=== PATIENT | male | born 1990 | race African-American/Black ===

== ENCOUNTER 2016-03-31 20:48 | Observation (INO) | payer MEDICARE, MEDICAID ==
[2016-03-31 20:49] VITALS: BMI 34.2
[2016-03-31] MEDS ORDERED: SODIUM CHLORIDE 0.9% 10 ML FLUSH FLUSH PRN (20:55)
--- NOTE | 2016-03-31 21:25 | EDPRACDOC ---
- General Information Stated Complaint: OVERDOSE Time Seen by Provider: 03/31/16 20:54 Information Source: [employer] Mode Of Arrival: Ambulance Home Medications: Home Medications Liraglutide [Victoza 0.6 mg/0.1 ml] 1.8 mg SQ BID 03/02/13 Alprazolam [Xanax] 1 mg PO TID 08/19/14 Zolpidem Tartrate [Ambien] 10 mg PO HS PRN 08/19/14 Pregabalin [Lyrica] 100 mg PO Q8H 03/31/15 Esomeprazole Mag Trihydrate [Nexium] 40 mg PO DAILY 06/01/15 Oxycodone HCl [Oxycodone Immediate Release] 20 mg PO .3-4X DAILY PRN 06/01/15 Allergies/Adverse Reactions: Allergies Allergy/AdvReac Type Severity Reaction Status Date / Time acetaminophen [From Vicodin] Allergy Severe Angioedema* Verified 11/23/15 11:33 hydrocodone bitartrate Allergy Severe Angioedema* Verified 11/23/15 11:33 [From Vicodin] prednisone Allergy Mild Confusion Verified 11/23/15 11:33 - History of Present Illness Onset: 30 MINUTES [employer] HPI: PT STATES TOOK NAPROXEN 220MG #50 LYRICA 100MG #4 XANAX UNKNOWN DOSE #3 PT STATES TOOK THIS IN ATTEMPTS TO HURT HIMSELF B/C HE IS TIRED OF LIFE. PT C/O CHEST TIGHTNESS. BP IS ELEVATED ON ARRIVAL. PT DOES NOT ADMIT TO OR DENY SUICIDAL IDEATIONS. Ingestion: Reports: Intentional Drug Ingested: NAPROXEN, XANANX, AND LYRICA Drug Amount Ingested: NAPROXEN 220MG #50, XANAX #3, LYRICA Suicidal Intent: Reports: Suicidal Intent, Suicidal Plan Stressors: Reports: Relationships Relevant History: Reports: Anxiety, Schizophrenia Medication Compliance?: No Reason for Seeking Treatment: 911 Call Symptom Severity: Mild Vomited After Ingestion?: No Associated Signs and Symptoms: Reports: Anxiety, Depression ED Past Medical History - History Reviewed Yes Nurses notes reviewed and agree except as marked Travel Outside of [place] in the Last 3 Months?: No - Patient Medical History Cardiac History: Reports: Hypertension, Hypercholesterolemia Systemic History: Reports: Diabetes Additional Past Medical History: CHRONIC PAIN ON OXYCODONE. Surgical History: Reports: Tonsillectomy/Adnoidectomy - Social Medical History Smoking Status: Heavy tobacco smoker (5 or more cigarettes/day or daily pipe/ cigar) Social History: Reports: Cocaine Use ETOH: None Substance Abuse: None Lives With: Other Lives In: Home EDM Review of Systems - Review of Systems ROS Negative Except as Marked: Yes All systems reviewed and were negative except as marked Constitutional: No Symptoms Reported. negative: Fever, Chills, Weakness, Fatigue, Loss of Appetite Eyes: No Symptoms Reported. negative: Redness, Blurred Vision, Double Vision, Discharge, Pain, Light Sensitive, Photophobia Ears: No Symptoms Reported. negative: Pain, Hearing Loss, Drainage, Ear Pulling Throat: No Symptoms Reported. negative: Pain, Swelling Nose: No Symptoms Reported. negative: Congestion, Bleeding, Discharge, Injection, Swelling, Deformity, Ecchymosis, Tender, Abrasion, Laceration Mouth: No Symptoms Reported. negative: Pain, Drooling Respiratory: No Symptoms Reported. negative: Cough, Brassy Cough, Barky Cough, Shortness of Breath, Wheezing, Hemoptysis Cardiovascular: Chest Pain (TIGHTNESS). negative: Cyanosis, Edema, Orthopnea, Palpitations, PND, Syncope, Skin Mottling Gastrointestinal: No Symptoms Reported. negative: Pain, Constipation, Nausea, Vomiting, Diarrhea, Melena, Formula Intolerance Genitourinary: No Symptoms Reported. negative: Dysuria, Hematuria, Frequency, Discharge, Bleeding, Testicular Pain, Neurological: No Symptoms Reported. negative: Headache, Dizziness, Seizure, Numbness, Weakness, Speech Difficulty, Gait Difficulty Musculoskeletal: No Symptoms Reported. negative: Neck, Chestwall, Ribs, Back, Shoulder, Arm, Elbow, Forearm, Wrist, Hand, Pelvis, Hip, Femur, Knee, Leg, Ankle , Foot Integumentary: No Symptoms Reported. negative: Itching, Rash, Bruising, Wound Allergic/Immunologic: No Symptoms Reported. negative: Hives, Itching Hematologic: No Symptoms Reported. negative: Lymphadenopathy, Easy Bruising, Easy Bleeding Endocrine: No Symptoms Reported. negative: Weight Gain, Weight Loss Psychiatric: No Symptoms Reported. negative: Anxiety, Depression, Hallucinations, Insomnia, Suicidal - Physical Exam Constitutional: No apparent distress, Alert (Awake) Oriented to: Time, Person, Place Last recorded Vital Signs: Last Vital Signs Temp 98.4 F 03/31/16 21:03 Pulse 100 03/31/16 21:03 Resp 18 03/31/16 21:03 BP 159/107 H 03/31/16 21:03 Pulse Ox 97 03/31/16 21:03 Oxygen Pulse Oxygen Saturation 97 O2 Device Oxygen Flow Rate Fraction of Inspired Oxygen ( FIO2) - HEENT Head: Normal ( normocephalic) Eye Exam: Normal (PERRL, EOMI, Sclera white) Oropharynx: Normal (Pharynx:Moist without exudate,Gums-no swelling) Tympanic Membrane: Normal ENT EAC: Normal TMJ: Normal Nose: No Symptoms Reported (septum midline) Neck: Normal (FROM, trachea at midline) - Respiratory/Cardiovascular Respiratory: Normal - CTA (BBS clear to auscultation without adventitious sounds ) Cardiovascular: Normal (RRR without murmur, gallop or rub) - GI Auscultation: Normal (NABS) Palpation: Normal (Soft,No rebound or guarding, non distended) Tenderness: Non tender Chew's Sign: Negative - Bladder: Normal - Musculoskeletal Back: Normal (Non-Tender) Extremities: Normal (Normal tone, Pulses 2+ No cyanosis or edema, FROM) - Integumentary Skin: Normal, Warm, Dry Lymphatics: Normal (no adenopathy) - Neurologic Memory Impaired: Normal Motor Function: Normal (Normal tone, Pulses 2+ No cyanosis or edema, FROM) Cranial Nerve: Normal (CN II-X11 intact sensation, strength 5/5) Cerebellar: Normal Mood Description: Anxious, Depressed Thought: Coherent Perception: Normal - Differential Diagnosis Depression, Drug Overdose, Schizophrenia, Suicidal Attempt, Suicidal Gesture - Re-evaluation Re-evaluation 1 Re-evaluation Time: 00:28 (PT HAS NOT HAD ANY EPISODES OF VOMITING) - Results 03/31/16 21:15 03/31/16 21:15 - EKG EKG #1 EKG Time: 21:05 -: Yes EKG interpreted by me Rate: bpm: 99 Villalba: Normal Rhythm: NSR Block: None Hypertrophy: None ST: Normal - Departure Disposition: Admit to Condition: Stable Final Diagnosis: Overdose of nonsteroidal anti-inflammatory drug (NSAID) Qualifiers: Encounter type: initial encounter Injury intent: intentional self-harm Qualified Code(s): T39.392A - Poisoning by other nonsteroidal anti-inflammatory drugs [NSAID], intentional self-harm, initial encounter Instructions: Adult Overdose Education/Counseling Given To: Patient Education/Counseling Given Regarding: Diagnosis, Treatment, Prognosis, Follow Up Referrals: Johnny Ramirez MD [Primary Care Provider] - One Week
[2016-03-31 21:31] LABS: AUTOMATED BASOPHIL 1.5 % (0-2); AUTOMATED EOSINOPHIL 1.8 % (0-5); AUTOMATED LYMPH 50.7 % (17-44); AUTOMATED MONOCYTE 6.5 % (3-10); AUTOMATED NEUTROPHIL 39.5 % (45-76); MPV 10.5 fL (7.4-10.4)
[2016-03-31] MEDS ORDERED: NS 1,000 ML IV ONE (21:33)
[2016-03-31 21:38] LABS: PARTIAL THROMB. TIME 29.8 SEC (22-35)
[2016-03-31 21:44] LABS: BLOOD UREA NITROGEN 8 MG/DL (9-20); CALCIUM 9.4 MG/DL (8.4-10.2); CALCULATED OSMOLALITY 277 MOs/Kg (270-290); CHLORIDE 105 mEq/L (98-107); ETOH-MGDL < 10 mg/dL; GLUCOSE 135 MG/DL (70-99); SODIUM LEVEL 144 mEq/L (137-146); TOTAL PROTEIN 8.3 G/DL (6.3-8.2)
[2016-03-31 21:45] LABS: ALL NEG? NO; MDMA* NEG (NEGATIVE); METHAMPHETAMINES NEG (NEGATIVE); OXYCODONE *POSITIVE* (NEGATIVE)
[2016-03-31] MEDS: NS 1,000 ML IV SCH (21:55)
[2016-04-01] MEDS ORDERED: GLUCOSE (ORAL GEL) 15 GM TUBE PO PRN (00:45)
[2016-04-01] MEDS ORDERED: GLUCAGON 1 MG VIAL SQ PRN (00:45)
[2016-04-01] MEDS ORDERED: DEXTROSE 25 GM/50 ML PFS IV PRN (00:45)
[2016-04-01] MEDS ORDERED: OXYCODONE HCL 5 MG TABLET PO PRN (00:45)
[2016-04-01] MEDS ORDERED: PROMETHAZINE 25 MG TAB PO PRN (00:47)
[2016-04-01] MEDS ORDERED: MAGNESIUM HYDROXIDE 30 ML BOTTLE PO PRN (00:47)
[2016-04-01] MEDS ORDERED: BISACODYL 5 MG TAB PO PRN (00:47)
[2016-04-01] MEDS ORDERED: ZOLPIDEM TARTRATE 5 MG TAB PO PRN (00:47)
[2016-04-01] MEDS ORDERED: LORAZEPAM 1 MG TAB PO PRN (00:47)
[2016-04-01] MEDS ORDERED: ONDANSETRON HCL 4 MG ODT TAB PO PRN (00:47)
[2016-04-01] MEDS: NS 1,000 ML IV SCH (01:31)
[2016-04-01] MEDS ORDERED: LIRAGLUTIDE 18 MG/3ML (0.6 MG/0.1 ML) PEN SQ SCH ×2 (02:00→09:00)
[2016-04-01] MEDS: NICOTINE 21 MG PATCH TOP SCH ×2 (02:55→15:36)
[2016-04-01] MEDS ORDERED: RANITIDINE 150 MG TAB PO STA (03:08)
[2016-04-01] MEDS ORDERED: CloNIDine 0.2 MG TAB PO ONE (03:09)
[2016-04-01] MEDS: REGULAR INSULIN 100 UNITS/ML - 3 ML VIAL SQ SCH ×3 (05:55→17:36)
[2016-04-01] MEDS: PREGABALIN 100 MG CAP PO SCH ×2 (05:55→13:50)
[2016-04-01] MEDS ORDERED: PANTOPRAZOLE 40 MG TAB PO SCH (06:00)
--- NOTE | 2016-04-01 08:43 | EDTUNOTE ---
- SOAP Note SOAP Note: 04/01/16 0835 Day 2 S: 25 y.o. M presented to ED for intentional overdose on naproxen. Pt denies c/ o this morning. O:Vital Signs: Temp:98.6 F HR: 82 BP: 136/67 RR: 20 Pox: 98%. Resting comfortably CTA RRR A: Overdose on NSAIDs P: Continue meds as directed for further stabilization. Pt placed at [place] and will be transferred. <Juana West - Last Filed: 04/01/16 08:41> - SOAP Note SOAP Note: No changes in clinical status or new information from previous documentation. Vital Signs: Temp:98.2 F HR: 99 BP: 141/83 RR: 20 Pox: 99%. Continue with current plan. PT STABLE FOR TRANSFER <Madeleine Faulkner - Last Filed: 04/01/16 18:33> - SOAP Note Patient Problems: Active Problems Overdose of nonsteroidal anti-inflammatory drug (NSAID) (Acute) T39.391A
--- NOTE | 2016-04-01 08:44 | TUDEPART ---
Disposition: Trans. to Other Hospital ([facility]) Condition: Stable Instructions: Adult Overdose Education/Counseling Given To: Patient Education/Counseling Given Regarding: Diagnosis, Treatment Follow-up / Referrals: Johnny Ramirez MD [Primary Care Provider] - One Week - Physical Exam Constitutional: No apparent distress, Alert (Awake) Oriented to: Time, Person, Place Last recorded Vital Signs: Last Vital Signs Temp 98.6 F 04/01/16 06:09 Pulse 82 04/01/16 06:09 Resp 20 04/01/16 06:09 BP 136/67 04/01/16 06:09 Pulse Ox 98 04/01/16 06:09 Oxygen Pulse Oxygen Saturation 98 O2 Device Room Air Oxygen Flow Rate Fraction of Inspired Oxygen ( FIO2) - HEENT Head: Normal ( normocephalic) Eye Exam: Normal (PERRL, EOMI, Sclera white) Oropharynx: Normal (Pharynx:Moist without exudate,Gums-no swelling) Tympanic Membrane: Normal ENT EAC: Normal TMJ: Normal Nose: No Symptoms Reported (septum midline) - Respiratory/Cardiovascular Respiratory: Normal - CTA (BBS clear to auscultation without adventitious sounds ) Cardiovascular: Normal (RRR without murmur, gallop or rub) - GI Auscultation: Normal (NABS) Palpation: Normal (Soft,No rebound or guarding, non distended) Tenderness: Non tender Chew's Sign: Negative - Bladder: Normal - Musculoskeletal Back: Normal (Non-Tender) Extremities: Normal (Normal tone, Pulses 2+ No cyanosis or edema, FROM) - Integumentary Skin: Normal, Warm, Dry Lymphatics: Normal (no adenopathy) - Neurologic Memory Impaired: Normal Motor Function: Normal (Normal tone, Pulses 2+ No cyanosis or edema, FROM) Cranial Nerve: Normal (CN II-X11 intact sensation, strength 5/5) Cerebellar: Normal Mood Description: Anxious, Depressed Thought: Coherent Perception: Normal
[2016-04-01] MEDS ORDERED: Non-Formulary Medication ITEM (Esomeprazole Mag Trihydrate [Nexium] 40 MG) PO SCH (09:00)
[2016-04-01 18:36] VITALS: BP 150/80; PULSE 89; TEMP 98.1
== END 2016-04-01 18:35 ==
LOC: ED 20:48 → TUOBSINP 04-01 00:47
PROVIDERS: ADMIT Physician Assistant Medical; ATTEND Emergency Medicine
DX: T39.312A Poisoning by propionic acid derivatives, intentional self-harm, initial encounter (principal); T42.4X2A Poisoning by benzodiazepines, intentional self-harm, initial encounter; T42.6X2A Poisoning by other antiepileptic and sedative-hypnotic drugs, intentional self-harm, initial encounter; I10 Essential (primary) hypertension; E78.00 Pure hypercholesterolemia, unspecified; E11.9 Type 2 diabetes mellitus without complications; G89.29 Other chronic pain; F14.10 Cocaine abuse, uncomplicated; F17.200 Nicotine dependence, unspecified, uncomplicated; Z79.891 Long term (current) use of opiate analgesic; Z79.899 Other long term (current) drug therapy
CPT/HCPCS: 36415; 80053; 80307; 80329; 82962; 85025; 85610; 85730; 86592; 96360; 96361; 96372; 99285; A9270; G0378; J3490